=== PATIENT | male | born 1995 | race Hispanic/Latino ===

== ENCOUNTER 2019-12-18 16:57 | Emergency (ER) | payer SELFPAY ==
[~2019-12-18 16:57] MED LIST: Iopamidol 370 76% 100 ML VIAL ONE
--- NOTE | 2019-12-18 17:42 | RAD ---
CHEST TWO VIEW: 12/18/19 HISTORY: Chest pain. COMPARISON: None. FINDINGS: There is a small right pleural effusion. Subtle linear opacities right lung base. No pneumothorax. The cardiac silhouette and mediastinal contours are within normal limits. No acute o sseous abnormality. IMPRESSION: 1. Findings concerning for a small right pleural effusion. 2. Subtle linear opacity right lung base may reflect bronchitis or resolving infection. POS: HOME
[2019-12-18 18:35] LABS: #Lymphocytes 0.9 thou/uL (1.20-3.40); #Monocytes 0.3 thou/uL (0.11-0.59); %Basophils 1.3 % (0.0-1.0); %Eosinophils 0.1 % (0.0-10.0); %Lymphocytes 26.9 % (21.0-51.0); %Monocytes 7.7 % (0.0-10.0); %Neutrophils 64.1 % (42.0-75.0); Hemoglobin 14.1 g/dL (14.0-18.0); Mean Corpuscular HGB CONC 32.1 g/dL (32.0-36.0); Mean Corpuscular Hemoglobin 29.2 pg (27.0-31.0); Mean Corpuscular Volume 90.8 fL (78.0-98.0); Mean Platelet Volume 9.2 fL (7.4-10.4); Platelet Count 191 thou/uL (130-400); RBC Distribution Width 11.7 % (11.5-14.5); Red Blood Cell (RBC) Count 4.82 mill/uL (4.70-6.10); White Blood Cell (WBC) Count 3.2 thou/uL (4.8-10.8)
--- NOTE | 2019-12-18 18:45 | CT ---
CT ANGIOGRAM CHEST WITH CONTRAST: 12/18/19 HISTORY: Chest pain. COMPARISON: Radiograph same day. FINDINGS: CT angiogram chest performed after the intravenous administration of contrast. 3D rendering provided. No proximal segmental pulmonary arterial filling defect. The upper abdomen is unremarkable. Aortic co ntour is normal. Likely reactive prevascular and right hilar lymph nodes. Thoracic spine is intact as well as the sternum and manubrium. There is a small focus consolidation in the right lung base. There is some mild wall thickening in t he right middle lobe as well as some low volume adjacent consolidation. There are a few reactive mike fissural nodules along the right minor fissure. There are few peripheral centrilobular nodules which are predominantly ground glass within the right upper lobe peripherally as well as in the right middl e lobe and right lower lobe. Left lung is relatively clear. The ribs are intact. IMPRESSION: 1. Findings of a resolving atypical either viral or fungal infectious process with few foci of s cattered small volume consolidation with centrilobular ground glass nodules and small solid nodules, faint. Mycoplasma pneumonia is suspected. Findings are not expected with Covid-19. Bronchoscopy may be helpful if clinically warranted. 2. No pulmonary embolism. POS: HOME
[2019-12-18 18:57] LABS: ALT (SGPT) 98 U/L (8-55); AST (SGOT) 64 U/L (5-34); Alkaline Phosphatase 63 U/L (40-110); Anion Gap 15 mmol/L (10-20); BUN (Urea Nitrogen) 12 mg/dL (8.9-20.6); Bilirubin, Total 0.8 mg/dL (0.2-1.2); Calc. Creatinine Clearance 0 mL/min (70-130); Calcium 8.4 mg/dL (7.8-10.44); Carbon Dioxide 23 mmol/L (22-29); Chloride 100 mmol/L (98-107); Estimated GFR-MDRD Greater than 90; Globulin 3.4 g/dL (2.4-3.5); Glucose 89 mg/dL (70-105); Potassium 4.6 mmol/L (3.5-5.1); Protein, Total 7.4 g/dL (6.0-8.3); Sodium 133 mmol/L (136-145)
== END 2019-12-18 19:10 | disposition home or self-care (01) ==
LOC: ERS 16:57
DX: J18.9 Pneumonia, unspecified organism (principal); F17.210 Nicotine dependence, cigarettes, uncomplicated
CPT/HCPCS: 36415; 71046; 71275; 80053; 85025; Q9967

== ENCOUNTER 2019-12-23 18:21 | Emergency (ER) | payer OTHER, SELFPAY ==
[2019-12-23 19:29] LABS: Bilirubin Negative (Negative); Blood, Urine Trace (Negative); Clarity Turbid (Clear); Glucose, Urine (Dipstick) 50 mg/dL (Negative); Leukocyte Negative Leu/uL (Negative); Nitrite Negative (Negative); Protein, Urine (Dipstick) 100 mg/dL (Neg-Trace); RBC/HPF 0-3 HPF (0-3); Squamous Epithelial 0-3 HPF (0-3)
[2019-12-23 19:33] LABS: #Lymphocytes 0.5 thou/uL (1.20-3.40); #Monocytes 0.2 thou/uL (0.11-0.59); #Neutrophils 2.1 thou/uL (1.40-6.50); %Basophils 0.6 % (0.0-1.0); %Eosinophils 0.2 % (0.0-10.0); %Lymphocytes 17.1 % (21.0-51.0); %Monocytes 7.4 % (0.0-10.0); %Neutrophils 74.7 % (42.0-75.0); Hemoglobin 14.8 g/dL (14.0-18.0); Mean Corpuscular HGB CONC 32.3 g/dL (32.0-36.0); Mean Corpuscular Hemoglobin 28.9 pg (27.0-31.0); Mean Corpuscular Volume 89.6 fL (78.0-98.0); Mean Platelet Volume 10.4 fL (7.4-10.4); Platelet Count 147 thou/uL (130-400); RBC Distribution Width 11.8 % (11.5-14.5); White Blood Cell (WBC) Count 2.8 thou/uL (4.8-10.8)
[2019-12-23 19:39] LABS: Bacteria/HPF 1+ HPF (None Seen)
[2019-12-23] MEDS ORDERED: cefTRIAXone\\ROCEPHIN 2 GM VIAL ONE (19:47)
[2019-12-23] MEDS ORDERED: Sodium Chloride 0.9% 100 ML ONE (19:47)
[2019-12-23] MEDS ORDERED: Azithromycin 500 MG VIAL ONE (19:49)
[2019-12-23 19:54] LABS: ALT (SGPT) 49 U/L (8-55); AST (SGOT) 54 U/L (5-34); Albumin 4.1 g/dL (3.5-5.0); Alkaline Phosphatase 72 U/L (40-110); Anion Gap 19 mmol/L (10-20); BUN (Urea Nitrogen) 36 mg/dL (8.9-20.6); Bilirubin, Total 0.7 mg/dL (0.2-1.2); CK (CPK) 89 U/L (30-200); Calc. Creatinine Clearance 0 mL/min (70-130); Calcium 8.5 mg/dL (7.8-10.44); Carbon Dioxide 20 mmol/L (22-29); Chloride 100 mmol/L (98-107); Estimated GFR-MDRD 40; Globulin 3.4 g/dL (2.4-3.5); Glucose 88 mg/dL (70-105); Potassium 4.2 mmol/L (3.5-5.1); Protein, Total 7.5 g/dL (6.0-8.3); Sodium 135 mmol/L (136-145)
[2019-12-23] MEDS ORDERED: Azithromycin 500 MG in Sodium Chloride 0.9% 250 ML 250 ML IVPB ONE (20:00)
[2019-12-23] MEDS ORDERED: cefTRIAXone\\ROCEPHIN 2 GM in Sodium Chloride 0.9% 100 ML IVPB ONE (20:00)
--- NOTE | 2019-12-23 20:43 | RAD ---
SINGLE VIEW OF THE CHEST: 12/23/19 COMPARISON: 12/18/19. HISTORY: Chest pain, diagnosed with pneumonia six days ago. FINDINGS: Single view of the chest shows a normal sized cardiomediastinal silhouette. There is no evidence of c onsolidation, mass, or pleural effusion. The bones are unremarkable. IMPRESSION: No evidence of acute cardiopulmonary disease. POS: [facility]
[2019-12-23 22:57] LABS: ALT (SGPT) 37 U/L (8-55); AST (SGOT) 44 U/L (5-34); Albumin 3.3 g/dL (3.5-5.0); Alkaline Phosphatase 56 U/L (40-110); Anion Gap 14 mmol/L (10-20); BUN (Urea Nitrogen) 30 mg/dL (8.9-20.6); Bilirubin, Total 0.4 mg/dL (0.2-1.2); Calc. Creatinine Clearance 0 mL/min (70-130); Calcium 7.3 mg/dL (7.8-10.44); Carbon Dioxide 20 mmol/L (22-29); Chloride 107 mmol/L (98-107); Estimated GFR-MDRD 56; Globulin 2.8 g/dL (2.4-3.5); Glucose 86 mg/dL (70-105); Potassium 4.3 mmol/L (3.5-5.1); Protein, Total 6.1 g/dL (6.0-8.3); Sodium 137 mmol/L (136-145)
--- NOTE | 2019-12-24 15:19 | EKG ---
Test Reason : Blood Pressure : / mmHG Vent. Rate : 096 BPM Atrial Rate : 096 BPM P-R Int : 124 ms QRS Dur : 090 ms QT Int : 362 ms P-R-T Axes : 034 095 019 degrees QTc Int : 457 ms Normal sinus rhythm Rightward axis Borderline ECG Confirmed by STEVE CANALES ([id number]), dictionary editor KRISTA AJ ([id number]) on 12/24/2019 3:19:02 PM Referred By: Confirmed By:STEVE Mckinney
== END 2019-12-23 23:38 | disposition home or self-care (01) ==
LOC: ERS 18:21
DX: J18.9 Pneumonia, unspecified organism (principal); E86.0 Dehydration; Z03.818 Encounter for observation for suspected exposure to other biological agents ruled out; F17.210 Nicotine dependence, cigarettes, uncomplicated
CPT/HCPCS: 36415; 71045; 80053; 81003; 81015; 82550; 83605; 83880; 84484; 85025; 87040; 87081; 87086; 87430; 87635; 87804; 93005; 96361; 96365; 96366; J0456; J0696; J3490; U0002